=== PATIENT | male | born 1970 | race Caucasian/White ===

== ENCOUNTER 2025-02-27 20:51 | Inpatient (IN) | payer BC ==
[~2025-02-27] VITALS: Ht 185.4 cm; Wt 117.9 kg
[2025-02-27 21:20] VITALS: TEMP 98.3
[2025-02-27 22:24] LABS: BASOPHILS % 0.5 % (0.0-1.0); EOSINOPHILS % 3.1 % (0.0-6.0); LYMPHOCYTES % 14.5 % (18.0-39.1); MONOCYTES % 8.5 % (4.4-11.3); NEUTROPHILS % 73.1 % (38.7-80.0); RED CELL DISTRIBUTION WIDTH 15.9 % (11.7-14.4)
[2025-02-27 22:27] LABS: AMPHETAMINES SCREEN,URINE NEGATIVE (NEGATIVE); CANNABINOIDS SCREEN,URINE NEGATIVE (NEGATIVE); COCAINE SCREEN,URINE NEGATIVE (NEGATIVE); METHADONE SCREEN, URINE NEGATIVE (NEGATIVE); OPIATES SCREEN,URINE NEGATIVE (NEGATIVE)
[2025-02-27 22:43] LABS: EST GLOMERULAR FILTRATION RATE 110.0 ML/MIN (>=60)
[2025-02-27] MEDS ORDERED: IOPAMIDOL 370 MG/ML 100 ML INFUS..BTL INJ ONE (23:28)
[2025-02-28] VITALS (13 sets, daily range): BP systolic 148–158; BP diastolic 91–96; PULSE 77–103; RESP 16–20; TEMP 97.5–99.3; O2SAT 95–100
[2025-02-28 01:39] LABS: INR 1.03
[2025-02-28] MEDS: HEPARIN SOD (PORCINE) 5,000 UNIT/ML VIAL IV ONE (02:22)
[2025-02-28] MEDS: HEPARIN SOD/DEXTROSE 5% 25000 UNIT/250 ML BAG IV SCH (02:23)
[2025-02-28] MEDS ORDERED: ONDANSETRON HCL INJ 2MG/ML 2ML 2 MG/ML VIAL IV PRN (02:45)
[2025-02-28] MEDS ORDERED: Morphine 4mg INJECTION 4 MG/ML INJ IV PRN (02:45)
[2025-02-28] MEDS: SODIUM CHLORIDE 0.9% 1000ML 1,000 ML IV SCH (03:42)
[2025-02-28] MEDS: ENOXAPARIN SODIUM INJ 100 MG/ML SYR SC SCH (04:05)
[2025-02-28] MEDS ORDERED: ZOLPIDEM TARTRATE 5 MG TAB PO PRN (09:45)
[2025-02-28] MEDS: ENOXAPARIN SOD INJ 120 MG/0.8 ML SYR SC SCH (17:56)
[2025-02-28 18:11] LABS: BASOPHILS % 0.5 % (0.0-1.0); EOSINOPHILS % 5.6 % (0.0-6.0); LYMPHOCYTES % 25.4 % (18.0-39.1); MONOCYTES % 7.7 % (4.4-11.3); NEUTROPHILS % 60.5 % (38.7-80.0); RED CELL DISTRIBUTION WIDTH 16.2 % (11.7-14.4)
[2025-02-28 22:08] LABS: % IRON SATURATION 6 % (15-50)
[2025-03-01] VITALS (9 sets, daily range): BP systolic 148–159; BP diastolic 78–97; PULSE 72–85; RESP 16–20; TEMP 97.5–99.8; O2SAT 96–99
[2025-03-01 05:10] LABS: BASOPHILS % 0.4 % (0.0-1.0); EOSINOPHILS % 6.3 % (0.0-6.0); LYMPHOCYTES % 23.7 % (18.0-39.1); MONOCYTES % 8.3 % (4.4-11.3); NEUTROPHILS % 60.9 % (38.7-80.0); RED CELL DISTRIBUTION WIDTH 15.9 % (11.7-14.4)
[2025-03-01 05:46] LABS: EST GLOMERULAR FILTRATION RATE 110.0 ML/MIN (>=60)
[2025-03-01] MEDS: OLMESARTAN 20 MG TAB PO SCH (08:11)
[2025-03-01] MEDS: CYANOCOBALAMIN 1,000 MCG TAB PO SCH (08:11)
[2025-03-01] MEDS: IRON SUCROSE 100 MG in SODIUM CHLORIDE 0.9% 100 ML IV SCH (08:12)
[2025-03-02] VITALS (9 sets, daily range): BP systolic 128–156; BP diastolic 78–88; PULSE 72–88; RESP 16–20; TEMP 97.8–98.6; O2SAT 96–100
[2025-03-02 02:11] LABS: CORONAVIRUS COVID-19 AG NEGATIVE (NEGATIVE)
[2025-03-02] MEDS: APIXABAN 5 MG TABLET PO SCH (22:09)
[2025-03-03] VITALS: BP 139/89; PULSE 65; RESP 20; TEMP 98.5; O2SAT 100
[2025-03-03 04:00] VITALS: BP 135/75; PULSE 74; RESP 20; TEMP 97.9; O2SAT 100
[2025-03-03 05:55] LABS: BASOPHILS % 0.2 % (0.0-1.0); EOSINOPHILS % 6.6 % (0.0-6.0); LYMPHOCYTES % 21.8 % (18.0-39.1); MONOCYTES % 11.1 % (4.4-11.3); NEUTROPHILS % 59.8 % (38.7-80.0); RED CELL DISTRIBUTION WIDTH 17.0 % (11.7-14.4)
[2025-03-03 07:00] VITALS: BP 130/80; PULSE 76; RESP 18; TEMP 98.2; O2SAT 100
[2025-03-03 07:39] VITALS: PULSE 85; RESP 18; O2SAT 98
[2025-03-03 10:00] VITALS: BP 130/80; PULSE 72; RESP 20; TEMP 98; O2SAT 100
[2025-03-03 12:00] VITALS: BP 157/88; PULSE 84; RESP 20; TEMP 98.4; O2SAT 100
[2025-03-03] MEDS ORDERED: ELIQUIS5 MG PO ×2 (13:10)
[2025-03-03] MEDS ORDERED: B-121000 MC1 PO (13:10)
== END 2025-03-03 14:40 | disposition home or self-care (01) | DRG 176 ==
LOC: ER 21:03 → ERHOLD 02-28 02:38 → IMCU 02-28 07:29 → ICU 02-28 16:36 → IMCU 02-28 21:06
PROVIDERS: ADMIT Family Medicine; ATTEND Family Medicine
DX: I26.99 Other pulmonary embolism without acute cor pulmonale (principal); I47.10 Supraventricular tachycardia, unspecified; K92.1 Melena; D50.9 Iron deficiency anemia, unspecified; E53.9 Vitamin B deficiency, unspecified; R55 Syncope and collapse; R53.81 Other malaise; F10.10 Alcohol abuse, uncomplicated; E66.9 Obesity, unspecified; Z68.34 Body mass index [BMI] 34.0-34.9, adult; Z11.52 Encounter for screening for COVID-19
CPT/HCPCS: 36415; 70450; 71260; 72125; 80048; 80053; 80307; 80320; 82550; 82607; 82746; 83540; 83690; 83880; 84466; 84484; 85025; 85045; 85610; 85730; 93005; 93306; 93970; 94799; 99284; J1644; J1650; J1756; J7030; J7050; Q9967

== ENCOUNTER → 2025-04-06 | Outpatient (REF) | payer BC ==
[~2025-04-06] MED LIST: B-121000 MC1 PO; BENICAR5 MG PO; ELIQUIS5 MG PO; FENTANYL CITRATE/PF 100MCG/2 ML INJ ONE; HYOSCYAMINE SULFATE 0.5 MG/ML INJ ONE; IRON; LIDOCAINE HCL 2% LOCAL INJ 5 ML SDV VIAL INJ ONE; ONDANSETRON HCL INJ 2MG/ML 2ML 2 MG/ML VIAL ONE; PROPOFOL IV EMULSION 50 ML IV ONE
[2025-04-06 09:40] LABS: BASOPHILS % 0.5 % (0.0-1.0); EOSINOPHILS % 2.6 % (0.0-6.0); LYMPHOCYTES % 33.5 % (18.0-39.1); MONOCYTES % 9.4 % (4.4-11.3); NEUTROPHILS % 53.7 % (38.7-80.0); RED CELL DISTRIBUTION WIDTH 22.8 % (11.7-14.4)
== END ==
LOC: RAD 12:00 → OR 04-07 10:31 → EDSTATUS 04-07 12:30
PROVIDERS: ATTEND Internal Medicine Gastroenterology
DX: Z12.11 Encounter for screening for malignant neoplasm of colon (principal); D64.9 Anemia, unspecified
CPT/HCPCS: 36415; 85025; J1980; J2003; J2405; J2470

== ENCOUNTER → 2025-04-21 | Day surgery (SDC) | payer BC ==
[~2025-04-21] MED LIST changes: +GLUCAGON FOR INJ 1 MG VIAL ONE; +KETAMINE HCL INJ 50 MG/ML 10 ML VIAL ONE; +PROPOFOL IV EMULSION 10 MG/ML 20 ML VIAL ONE
[2025-04-21] MEDS: LACTATED RINGER'S 1,000 ML ONE (10:19)
[2025-04-21 12:14] VITALS: TEMP 97.9
[2025-04-21 13:00] VITALS: BP 112/70; PULSE 56; RESP 18; O2SAT 99
[2025-04-21 13:42] LABS: CDIFF AG QUIK CHEK NEGATIVE (NEGATIVE); CDIFF TOX QUIK CHEK NEGATIVE (NEGATIVE)
== END | disposition home or self-care (01) ==
LOC: OR 08:35
PROVIDERS: ATTEND Internal Medicine Gastroenterology
DX: D50.8 Other iron deficiency anemias (principal); C19 Malignant neoplasm of rectosigmoid junction; D12.0 Benign neoplasm of cecum; D12.2 Benign neoplasm of ascending colon; D12.3 Benign neoplasm of transverse colon; D12.4 Benign neoplasm of descending colon; K29.00 Acute gastritis without bleeding; K29.50 Unspecified chronic gastritis without bleeding; K22.2 Esophageal obstruction; K64.8 Other hemorrhoids; I10 Essential (primary) hypertension; Z71.89 Other specified counseling; F41.9 Anxiety disorder, unspecified; Z79.02 Long term (current) use of antithrombotics/antiplatelets; Z79.899 Other long term (current) drug therapy; Z68.29 Body mass index [BMI] 29.0-29.9, adult; Z71.3 Dietary counseling and surveillance; Z86.711 Personal history of pulmonary embolism
CPT/HCPCS: 43239; 43450; 45378; 45380; 45385; 83630; 83993; 87045; 87177; 87324; 87328; 87449; J1610; J1980; J2003; J2405; J2470